=== PATIENT | female | born 1925 | race Caucasian/White ===

== ENCOUNTER → 2017-05-27 | Outpatient (CLI) | payer MEDICARE, OTHER ==
[2017-05-27 10:43] LABS: HEMATOCRIT 44.1 % (34.6-47.8); HEMOGLOBIN 14.8 g/dL (11.7-16.4); WHITE BLOOD COUNT 7.2 x10^3/uL (3.4-10)
[2017-05-27 10:54] LABS: BLOOD UREA NITROGEN 13 mg/dL (7-18)
[2017-05-27 10:57] LABS: ASPARTATE AMINO TRANSFERASE 11 U/L (15-37)
[2017-05-28 17:24] LABS: ANA SCREEN NEGATIVE (Negative)
== END | disposition home or self-care (01) ==
LOC: LAB 10:13
PROVIDERS: ATTEND Nurse Practitioner
DX: L40.0 Psoriasis vulgaris (principal); R21 Rash and other nonspecific skin eruption; Z79.899 Other long term (current) drug therapy
CPT/HCPCS: 36415; 80053; 80074; 85025; 86038; 86480